=== PATIENT | female | born 1960 | race Caucasian/White ===

== ENCOUNTER → 2016-10-19 | Outpatient (CLI) | payer OTHER ==
[~2016-10-19] MED LIST: FAMO20TA11 PO; LANS15CA6 PO; LRT5 PO; SYN50 PO
--- NOTE | 2016-10-20 14:35 | MAMMOGRAPHY REPORT ---
BILATERAL DIGITAL SCREENING MAMMOGRAM TOMOSYNTHESIS WITH CAD: 10/19/2016 CLINICAL HISTORY: Routine screening. Patient has no complaints. TECHNIQUE: Breast tomosynthesis in addition to standard 2D mammography was performed. Current study was also evaluated with a Computer Aided Detection (CAD) system. COMPARISON: Comparison is made to exams dated: 08/28/2013 mammogram, 02/24/2011 mammogram - [facility], 07/09/2008, and 07/06/2005 mammogram - [facility]. BREAST COMPOSITION: There are scattered areas of fibroglandular density in both breasts. FINDINGS: There are benign-appearing calcifications scattered in the breasts. No new suspicious mas s, architectural distortion or cluster of microcalcifications is seen. IMPRESSION: ACR BI-RADS CATEGORY 1: NEGATIVE There is no mammographic evidence of malignancy. A 1 year screening mammogram is recommended. The p atient will receive written notification of the results. Approximately 10% of breast cancers are not detected with mammography. A negative mammographic repor t should not delay biopsy if a clinically suggestive mass is present. Fatemeh Stark M.D. ay/:10/20/2016 07:37:26 Pharmacy Retail Support Specialist: Debbie GRAY(Laine)([place]), [facility] letter sent: Normal 1/2 BI-RADS Code: ACR BI-RADS Category 1: Negative
== END | disposition home or self-care (01) ==
LOC: C.MAMM 11:10
PROVIDERS: ATTEND Internal Medicine
DX: Z12.31 Encounter for screening mammogram for malignant neoplasm of breast (principal)

== ENCOUNTER 2018-01-22 12:07 | Emergency (ER) | payer OTHER ==
[~2018-01-22] VITALS: Ht 167.6 cm; Wt 111.3 kg
--- NOTE | 2018-01-22 12:16 | EMERGENCY ROOM VISIT NOTE ---
ED Visit Note First contact with patient: 12:14 CHIEF COMPLAINT: Suture removal left lower leg laceration HPI: This patient returns to the ED today for removal of sutures that were placed 9 days ago into her left lower leg. There has been no swelling, redness , or drainage from the wound. The patient feels like the laceration is healing well. REVIEW OF SYSTEMS: 6 system review was performed and was negative unless stated otherwise in history of present illness. PMH: The patient is healthy; diabetic, asthma, cholecystectomy, kidney stones , hysterectomy, gastric bypass, tonsillectomy SOCIAL HISTORY: Patient lives with her PHYSICAL EXAM: Vital Signs: Were reviewed reviewed Nurse's notes. GENERAL: 49- year-old white female appears in no acute distress. MENTAL Status: Alert and oriented 3. LEFT LOWER LEG: There is a sutured wound on the anterior medial with no signs of infection. There is no erythema, swelling, or tenderness. EMERGENCY DEPARTMENT COURSE: The sutures were removed without any difficulty and there was no separation of the wound edges. DIAGNOSIS: Healing left lower leg laceration laceration and suture removal DISCHARGE INSTRUCTIONS AND TREATMENT: Wash any remaining crusts off of the wound today and resume your normal activities. Current/Historical Medications Scheduled Famotidine (Pepcid), 20 MG PO DAILY Hydrocodone/Acetaminophen 5MG/500MG (Vicodin 5MG/500MG), 1-2 TABS PO Q6HR PRN Lansoprazole (Prevacid), 15 MG PO DAILY Levothyroxine (Synthroid *), 0.05 MG PO DAILY Allergies Coded Allergies: Iodinated Contrast Media (Verified Allergy, Unknown, HIVES TO CT SCAN DYE , 04/01/10) Departure Information Referrals Christophe Valencia M.D. (PCP) Patient Instructions My [facility]
[2018-01-22 12:22] VITALS: BP 112/76; PULSE 68; TEMP 36.7; O2SAT 96; Ht 167.6 cm; Wt 111.3 kg
== END 2018-01-22 12:38 | disposition home or self-care (01) ==
LOC: C.EDB 12:07 → C.EDD 12:38
DX: S81.812D Laceration without foreign body, left lower leg, subsequent encounter (principal); X58.XXXD Exposure to other specified factors, subsequent encounter

== ENCOUNTER 2024-07-12 11:52 | Inpatient (IN) ==
--- NOTE | 2024-07-12 12:31 | Emergency Department Note ---
Impression & Plan Pyelonephritis of right kidney, History of ESBL E. coli infection, Iron deficiency anemia, ALBERTO (acute kidney injury) ED Provider Note NAME: JARRED MCKOY AGE: 64 SEX: F : 1960 ARRIVES VIA: Walk-In INFORMANT: Patient ED PROVIDER(S): Moose Tao MD CHIEF COMPLAINT: Weakness, low blood pressure, jaundice, referred. PLAN: Disposition: Admit MEDICAL DECISION MAKING: The patient is a pleasant 64-year-old woman with a past medical history of type 2 diabetes, GERD, hyperlipidemia, hypothyroidism who presents to the emergency department via walk-in, referred by her pcp office for evaluation of generalized weakness, body aches, feverishness, cough, congestion over the past week which she feels is similar incontinuity with similar illness that she had in April and through the holidays. She does report feeling some improvement but never completely felt back to her normal state of health. She reports that her provider noted her blood pressure was low today in the office and that she appeared "pale" and slightly "jaundiced". Patient denies any excessive acetaminophen intake to manage her symptoms. She denies abdominal pain. She denies nausea or vomiting but does feel she has had no appetite and poor oral intake. She denies diarrhea. She reports her stool is brown, nonbloody and nonblack. She has been attempting to hydrate. On evaluation, the patient is no acute distress, with temperature of 37.8, blood pressure 100/50s medicines otherwise stable. She appears clinically dry. She has mild pallor but no overt jaundice or icterus. Abdomen is nontender. EKG without overt acute ischemia. CXR negative for acute cardiopulmonary process per my personal preliminary review/interpretation. WBC within normal limits without neutrophilia or left shift. H/H 9.6/29.5 decreased from prior values in 2022 with normocytic MCV with iron studies suggestive of iron deficiency/chronic disease. Chemistry with out metabolic acidosis. BUN is 30 with creatinine 1.6 with BUN/creatinine consistent with patient's clinically dry appearance/ALBERTO. Magnesium 1.6 and electrolytes otherwise unremarkable. AST and ALT are mildly elevated 54 and 70, respectively. Total bilirubin is normal as is direct bilirubin. High- sensitivity troponin is not elevated. Lipase is normal. Procalcitonin is elevated at 4.9. TSH within normal limits. Lactic acid within normal limits. UA is consistent with infection with WBCs and bacteria. Respiratory BioFire was negative. CT of the abdomen pelvis was performed and is consistent with pyelonephritis with gas noted in the bladder and right collecting system. Review of prior cultures demonstrates history of ESBL E. coli UTI and so Invanz ordered empirically at this time. Blood cultures are pending. Given patient's complicated UTI, the patient agrees with referral to hospitalist service for admission. Case was discussed with FRANCO Sykes hospitalist, who will evaluate the patient for admission. Further management per admitting team. Triage Nursing notes reviewed and agree them. Prior/external medical records reviewed Vital Signs: reviewed Differential diagnosis: Infection, dehydration, metabolic abnormality, hypo/hyperglycemia, electrolyte disturbance, anemia, hypoxia, cardiac sources, intracerebral event, toxicologic, neurologic, as well as other pathologies. ER treatment provided: See below. Diagnostics interpreted by me: ECG: Normal sinus rhythm, 61 bpm, no ectopy, no overt ST elevation or depression, QTc 416, QRS 74 Cardiac Monitoring: An order for continuous cardiac monitoring was placed and demonstrated NSR, 61 bpm, no ectopy. Laboratory studies: See below Imaging studies: See below Consultation(s): Case was discussed with KATHY Sykes hospitalist, who will evaluate the patient for admission. HPI: The patient is a pleasant 64-year-old woman with a past medical history of type 2 diabetes, GERD, hyperlipidemia, hypothyroidism who presents to the emergency department via walk-in, referred by her pcp office for evaluation of generalized weakness, body aches, feverishness, cough, congestion over the past week which she feels is similar incontinuity with similar illness that she had in April and through the holidays. She does report feeling some improvement but never completely felt back to her normal state of health. She reports that her provider noted her blood pressure was low today in the office and that she appeared "pale" and slightly "jaundiced". Patient denies any excessive acetaminophen intake to manage her symptoms. She denies abdominal pain. She denies nausea or vomiting but does feel she has had no appetite and poor oral intake. She denies diarrhea. She reports her stool is brown, nonbloody and nonblack. She has been attempting to hydrate. ROS: See above HPI for pertinent positives & negatives. A total of 10 systems reviewed and were otherwise negative. VITALS:See Below PHYSICAL EXAMINATION: GENERAL: Awake, alert, fatigued-appearing, in no distress HENT: Normocephalic, atraumatic. TMs normal bilaterally. Oropharynx with dry mucous membranes and otherwise unremarkable. EYES: Normal conjunctiva. Sclera non-icteric. NECK: Supple. No nuchal rigidity. FROM. No JVD. RESPIRATORY: Clear to auscultation. CARDIAC: Regular rate, normal rhythm. Extremities warm and well perfused. Pulses equal. ABDOMEN: Soft, non-distended. No tenderness to palpation. No rebound or guarding. No masses. MUSCULOSKELETAL: Chest examination reveals no tenderness. The back is symmetrical on inspection without obvious abnormality. There is no CVA tenderness to palpation. No joint edema. LOWER EXTREMITIES: Calves are equal size bilaterally and non-tender. No edema. No discoloration. NEURO: Normal sensorium. No sensory or motor deficits noted. SKIN: No rash or jaundice noted. Moose Tao MD Past Med/Surg History Problem List (Updated 07/13/24 @ 00:42 by Moose Tao MD) ALBERTO (acute kidney injury) (Acute) Iron deficiency anemia (Acute) History of ESBL E. coli infection (Acute) Pyelonephritis of right kidney (Acute) Type 2 diabetes mellitus with albuminuria Hypertriglyceridemia Type 2 diabetes mellitus with obesity Skin tags, multiple acquired Dyslipidemia Hypothyroidism Thyromegaly History of gastric bypass with hernia repair GERD (gastroesophageal reflux disease) Asthma allergy induced--inhaler prn Depression (Acute) Medical History Vitamin D deficiency History of anesthesia reaction after wrist sx: difficulty waking and "oxygen level kept dropping, had to admit me and wear oxygen overnight" Osteoarthritis Kidney stones Diabetes mellitus, type 2 Surgical History H/O umbilical hernia repair History of cholecystectomy History of hysterectomy History of dilatation and curettage x2 History of open reduction and internal fixation (ORIF) procedure x2 left wrist--hardware in place History of cystoscopy x2 with stents placed History of colonoscopy History of esophagogastroduodenoscopy (EGD) History of tooth extraction History of tonsillectomy and adenoidectomy History of bilateral cataract extraction Family History Grandmother (Maternal) Diabetes Mother Diabetes Dementia Son Diabetes Uncle Colorectal cancer Aunt Breast cancer Other No family history of adverse response to anesthesia Denies family history of Ovarian cancer Prostate cancer Myocardial infarction Social History Smoking Status: Unknown if ever smoked Second Hand Exposure: No ( smoked); Do You Dip or Chew Tobacco: No; Hx Alcohol Use: No Hx Substance Use: No Preferred Language: Mongolian Communication Ability: Effective Visual Impairment: Limited Hearing Ability: Normal Trade Sales Assistant Required: No Beliefs That Will Affect Care: None marital status: Current Living Situation: Family Current Living Situation Comment: with son current occupational status: employed How many Children do You have: 2 Other Information That Helps Us Care for You: No Feels Safe at Home: Yes Safety Concerns: Feels Safe At This Time Childhood Exposure to Second-Hand Smoke: Yes Diet Comment: Watches lactose carefully caffeine: Yes (soda) Dental Care, Regularly: Yes Physical Activity Frequency: Does not Exercise Seatbelt Use: always Sunscreen Use: No Assistive Devices: Glasses Allergies Allergies Allergy/AdvReac Type Severity Reaction Status Date / Time Iodinated Contrast Media Allergy Unknown HIVES TO Verified 07/12/24 10:41 CT SCAN DYE shellfish derived Allergy Unknown Verified 07/12/24 10:41 Home Meds Home Medications Medication Instructions Recorded Confirmed multivitamin 1 tab PO QAM 09/26/18 07/12/24 mecobalamin (vitamin B12) 1,000 1,000 mcg PO DAILY 02/05/20 07/12/24 mcg chewable tablet cholecalciferol (vitamin D3) 25 3,000 unit PO QAM 09/28/21 07/12/24 mcg (1,000 unit) capsule (Vitamin D3) metformin 1,000 mg tablet 1,000 mg PO UD 07/12/24 07/12/24 Previous Rx's Medication Instructions Recorded albuterol sulfate 90 mcg/actuation 2 puff inhalation QID PRN 04/06/23 aerosol inhaler shortness of breath or wheezing #6.7 grams pantoprazole 40 mg tablet,delayed 40 mg PO DAILY #90 tabs 11/30/23 release fexofenadine 180 mg tablet 180 mg PO Q24H 30 days #30 tabs 01/21/24 (Allergy Relief (fexofenadine)) tirzepatide 5 mg/0.5 mL 5 mg (0.5 mL) subcut .q7days 28 05/22/24 subcutaneous pen injector days #2 mL (Mounjaro) atorvastatin 10 mg tablet 10 mg PO DAILY #30 tabs 07/02/24 levothyroxine 175 mcg tablet 175 mcg PO DAILY #30 tabs 07/02/24 olmesartan 5 mg tablet 5 mg PO DAILY 90 days #90 tabs 07/02/24 Results & Data (ED) Vital Signs Vital Signs - 24 hr 07/12/24 11:55 07/12/24 12:17 07/12/24 12:21 Pulse Rate 66 63 Pulse Rate [Apical] 69 Pulse Rhythm [Apical] Pulse Strength [Apical] Respiratory Rate 20 18 Respiratory Effort / Characteristics Non-Labored Spontaneous Non-Labored Spontaneous Respiratory Depth Normal Normal Respiratory Pattern Regular Blood Pressure 104/58 L Blood Pressure [Right Arm] 112/51 L Blood Pressure Mean 73 Blood Pressure Mean [Right Arm] 71 Blood Pressure Position [Right Arm] Sitting Pulse Oximetry 100 98 Oxygen Delivery Method Room Air Room Air Sepsis Recent Fever Within 48 Hours Yes Sepsis New/Unexplained Change in Mental Status No Sepsis Action Taken by Nursing No Action Required 07/12/24 13:00 07/12/24 13:30 07/12/24 14:00 Pulse Rate 60 65 Pulse Rate [Apical] 69 Pulse Rhythm [Apical] Pulse Strength [Apical] Respiratory Rate 24 21 18 Respiratory Effort / Characteristics Non-Labored Spontaneous Respiratory Depth Normal Respiratory Pattern Blood Pressure 106/62 108/62 Blood Pressure [Right Arm] 129/72 Blood Pressure Mean 68 80 Blood Pressure Mean [Right Arm] 91 Blood Pressure Position [Right Arm] Sitting Pulse Oximetry 98 96 99 Oxygen Delivery Method Room Air Sepsis Recent Fever Within 48 Hours Sepsis New/Unexplained Change in Mental Status Sepsis Action Taken by Nursing 07/12/24 14:00 07/12/24 15:21 07/12/24 15:30 Pulse Rate 65 67 Pulse Rate [Apical] 66 Pulse Rhythm [Apical] Regular Pulse Strength [Apical] Normal Respiratory Rate 20 16 15 Respiratory Effort / Characteristics Non-Labored Respiratory Depth Normal Respiratory Pattern Blood Pressure 129/72 114/69 Blood Pressure [Right Arm] 115/68 Blood Pressure Mean 97 99 Blood Pressure Mean [Right Arm] 83 Blood Pressure Position [Right Arm] Pulse Oximetry 96 99 93 Oxygen Delivery Method Room Air Sepsis Recent Fever Within 48 Hours Sepsis New/Unexplained Change in Mental Status Sepsis Action Taken by Nursing 07/12/24 16:17 07/12/24 16:30 07/12/24 17:00 Pulse Rate 62 69 75 Pulse Rate [Apical] Pulse Rhythm [Apical] Pulse Strength [Apical] Respiratory Rate 19 24 Respiratory Effort / Characteristics Respiratory Depth Respiratory Pattern Blood Pressure 112/68 99/62 L Blood Pressure [Right Arm] Blood Pressure Mean 84 73 Blood Pressure Mean [Right Arm] Blood Pressure Position [Right Arm] Pulse Oximetry 99 100 Oxygen Delivery Method Sepsis Recent Fever Within 48 Hours Sepsis New/Unexplained Change in Mental Status Sepsis Action Taken by Nursing Laboratory Data Attestation: I reviewed the patient's lab results. 07/12/24 12:15 07/12/24 12:15 Lab Results 07/12/24 07/12/24 07/12/24 Range/Units 12:15 14:20 15:25 WBC 5.57 (4.8-10.8) K/ul RBC 3.28 L (4.20-5.40) M/uL Hgb 9.6 L (12.0-16.0) g/dl Hct 29.5 L (37.0-47.0) % MCV 89.9 (80.0-100.0) fL MCH 29.3 (25.0-34.0) pg MCHC 32.5 (32.0-36.0) g/dL RDW Std Deviation 52.4 H (36.4-46.3) fL RDW Coeff of Ani 15.9 H (11.5-14.5) % Plt Count 274 (130-400) K/uL MPV 10.5 (9.4-12.4) fL Immature Gran % (Auto) 0.4 % Neut % (Auto) 69.5 % Lymph % (Auto) 17.2 % [place] % (Auto) 9.7 % Eos % (Auto) 2.3 % Baso % (Auto) 0.9 % Reticulocyte % (Auto) 1.04 (0.50-2.00) % Neut # (Auto) 3.87 (1.40-6.50) K/uL Lymph # (Auto) 0.96 L (1.20-3.40) K/uL [place] # (Auto) 0.54 (0.11-0.59) K/uL Eos # (Auto) 0.13 (0.00-0.50) K/uL Baso # (Auto) 0.05 (0.00-0.20) K/uL Reticulocyte # 0.030 (0.020-0.100) 10^6/uL Immature Gran # (Auto) 0.02 (0.01-0.20) K/uL PT 10.6 (9.0-12.0) Seconds INR 1.0 (0.9-1.1) Sodium 139 (136-145) mmol/L Potassium 3.5 (3.5-5.1) mmol/L Chloride 107 (98-107) mmol/L Carbon Dioxide 22 (21-32) mmol/L Anion Gap 10 (3-11) BUN 30 H (6-23) mg/dl Creatinine 1.26 H (0.6-1.2) mg/dl Est Cr Clr Drug Dosing 51.1 ml/min eGFR 47.38 BUN/Creatinine Ratio 23.8 H (10-20) Glucose 126 H (70-99(Fasting)) mg/dl Lactate 1.4 (0.4-2.0) mmol/L Calcium 9.4 (8.6-10.3) mg/dl Phosphorus 3.1 (2.5-4.9) mg/dl Magnesium 1.6 L (1.7-2.4) mg/dl Iron 11 L (35-150) mcg/dl Unsaturated IBC 200 (155-355) mcg/dl Transferrin 173 L (200-360) mg/dl Ferritin 362.7 (8-388) ng/ml Total Bilirubin 0.6 (0.2-1.0) mg/dl Direct Bilirubin 0.2 (0-0.2) mg/dl AST 54 H (13-39) U/L ALT 78 H (7-52) U/L Alkaline Phosphatase 82 (34-104) U/L Ammonia 16.0 L (18-72) umol/L Troponin I High Sens 5.5 (0-14) pg/ml Total Protein 6.9 (6.0-8.3) gm/dl Albumin 3.5 (3.4-5.0) gm/dl Globulin 3.4 (2.5-4.0) gm/dl Albumin/Globulin Ratio 1.0 (0.9-2) Lipase 36 (11-82) U/L Vitamin B12 1413 H (180-914) pg/ml Folate > 22.30 (>5.38) ng/ml Procalcitonin 4.95 H (0-0.5) ng/ml TSH 0.539 (0.300-4.500) uIu/ml Urine Color Yellow Urine Appearance Cloudy A (Clear) Urine pH 5.5 (4.5-7.5) Ur Specific [place] 1.020 (1.000-1.030) Urine Protein 1+ H (Negative) Urine Glucose (UA) Negative (Negative) Urine Ketones Negative (Negative) Urine Blood 2+ H (Negative) Urine Nitrite Negative (Negative) Urine Bilirubin Negative (Negative) Urine Urobilinogen Negative (Negative) Ur Leukocyte Esterase 2+ H (Negative) Urine WBC (Auto) >50 H (0-5) /hpf Urine RBC (Auto) 11-20 H (0-2) /hpf U Hyaline Cast (Auto) 11-20 H (0-2) /lpf U Epithel Cells (Auto) 3-5 H (0-2) /hpf Urine Bacteria (Auto) 4+ H (None Seen) Hyaline Casts Present A (None Presnt) /lpf Acetaminophen 28 (10-30) ug/ml Adenovirus (PCR) Not Detected (NotDetected) Anaplasma Smear See Comment Babesia Smear See Comment B. pertussis DNA (PCR) Not Detected (NotDetected) B.parapertussis DNA PCR Not Detected (NotDetected) Lyme Disease Screen Negative (Negative) C. pneumoniae DNA (PCR) Not Detected (NotDetected) Coronavirus OC43 (PCR) Not Detected (NotDetected) Coronavirus HKU1 (PCR) Not Detected (NotDetected) Coronavirus 229E (PCR) Not Detected (NotDetected) SARS-CoV-2 (PCR) Not Detected (NotDetected) Coronavirus NL63 (PCR) Not Detected (NotDetected) Human Metapneumovir PCR Not Detected (NotDetected) Influenza Type A (PCR) Not Detected (NotDetected) Influenza Type B (PCR) Not Detected (NotDetected) M. pneumoniae (PCR) Not Detected (NotDetected) Parainfluenza 1 (PCR) Not Detected (NotDetected) Parainfluenza 2 (PCR) Not Detected (NotDetected) Parainfluenza 3 (PCR) Not Detected (NotDetected) Parainfluenza 4 (PCR) Not Detected (NotDetected) RSV (PCR) Not Detected (NotDetected) Entero/Rhino (PCR) Not Detected (NotDetected) Administered Medications Fexofenadine HCl (Fexofenadine Hcl 180 Mg Tab) 180 mg PO Q24H MINDY Stop: 08/11/24 20:59 Last Admin: 07/12/24 20:35 Dose: 180 mg Documented By: DAMildred Insulin Aspart (Insulin Aspart Per Unit Charge) 0 units SC ACHS MINDY Stop: 08/11/24 20:59 Last Admin: 07/12/24 20:03 Dose: Not Given Documented By: DAH Discontinued Medications Sodium Chloride (Nss) 1,000 mls @ 999 mls/hr IV .Q1H1M ONE Stop: 07/12/24 13:26 Last Infusion: 07/12/24 14:21 Dose: Infused Documented By: Admin: 07/12/24 12:54 Dose: 999 mls/hr Documented By: CC Ertapenem (Invanz 1000mg) 1,000 mg in 10 mls @ 2 mls/min IV NOW STA Stop: 07/12/24 16:16 Last Admin: 07/12/24 16:26 Dose: 2 mls/min Documented By: HB Sodium Chloride (Nss) 1,000 mls @ 999 mls/hr IV .Q1H1M ONE Stop: 07/12/24 17:12 Last Infusion: 07/12/24 17:21 Dose: Infused Documented By: Admin: 07/12/24 16:23 Dose: 999 mls/hr Documented By: HB Sodium Chloride (Nss) 1,000 mls @ 999 mls/hr IV .Q1H1M ONE Stop: 07/12/24 18:31 Last Infusion: 07/12/24 19:02 Dose: Infused Documented By: Admin: 07/12/24 17:43 Dose: 999 mls/hr Documented By: ANT Ibuprofen (Ibuprofen 600 Mg Tab) 600 mg PO NOW ONE Stop: 07/12/24 20:49 Last Admin: 07/12/24 21:21 Dose: 600 mg Documented By: [facility] Imaging Data Radiologist's Impression: Chest X-Ray 07/12/24 12:12 XR chest 1V portable CLINICAL HISTORY: Chest pain, nonspecific TECHNIQUE: Single frontal radiograph of the chest was obtained. Comparison: Comparison is made to chest radiograph 04/26/2023 FINDINGS: No lines and tubes are seen. The cardiomediastinal silhouette is normal. The lungs are clear. No evidence of pleural effusion or pneumothorax. IMPRESSION: No acute chest disease. ACT 112: Negative or not required by law. Electronically signed by: Sunny Duke M.D. 07/12/2024 12:37 PM Abdomen/Pelvis CT 07/12/24 13:57 CT abd pelvis wo con CLINICAL HISTORY: fever, transaminitis, anemia TECHNIQUE: Helical axial images of the abdomen and pelvis were obtained. Automated dose lowering techniques and/or adjustment according to patient size were utilized for this exam. This exam was performed without intravenous contrast. CT DOSE: 1447.29 mGy.cm COMPARISON: Comparison is made to CT abdomen pelvis 03/26/2010 FINDINGS: Lower chest: Trace right pleural effusion is seen. Liver: Unremarkable. No focal lesions are seen. Gallbladder and biliary tree: Patient is status post cholecystectomy. No intra- or extrahepatic biliary ductal dilation. Pancreas: Unremarkable, no focal lesions. Spleen: Splenule is incidentally noted. Adrenals: Unremarkable. Kidneys and ureters: Perinephric stranding is noted bilaterally. Parapelvic cysts are seen on the left. There is gas in the right collecting system and a tiny nonobstructive stone. Bladder: An independent gas may represent prior instrumentation. Reproductive organs: Patient is status post hysterectomy. Bowel: Diverticulosis is seen without diverticulitis. The appendix is normal. There is a small hiatal hernia status post gastric bypass. Lymph nodes Retroperitoneal: Subcentimeter lymph nodes are noted. Pelvic: Unremarkable. Mesenteric: Unremarkable. Peritoneum: Normal. Vessels: Unremarkable. Abdominal wall: A nonspecific calcification in focus of soft tissue thickening in the back is unchanged. Bones: Degenerative changes in the visualized spine. IMPRESSION: 1. No acute abnormalities are seen to explain fever and chills. 2. Gas in the bladder and right collecting system, correlate with prior instrumentation. 3. Diverticulosis without diverticulitis. ACT 112: Negative or not required by law. Electronically signed by: Sunny Duke M.D. 07/12/2024 2:23 PM Discharge Plan Visit Data Chief Complaint: Referred by Doctor Stated Complaint: LOW BP, R/O JAUNDICE. SENT BY ED Provider: Moose Tao Discharge Problem: Pyelonephritis of right kidney, History of ESBL E. coli infection, Iron deficiency anemia, ALBERTO (acute kidney injury) Patient Disposition: Admitted As Inpatient Discharge Instructions Interventions: ED Discharge Assessment Last Done: 07/12/24 20:00 Discharge Problem: Iron deficiency anemia Qualifiers: Iron deficiency anemia type: unspecified iron deficiency Qualified Code(s): D 50.9 - Iron deficiency anemia, unspecified
[2024-07-12 12:36] LABS: Basophils # (auto) 0.05 K/uL (0.00-0.20); Basophils % (auto) 0.9 %; Eosinophils # (auto) 0.13 K/uL (0.00-0.50); Eosinophils % (auto) 2.3 %; Hematocrit (blood only) 29.5 % (37.0-47.0); Hemoglobin 9.6 g/dl (12.0-16.0); Immature Granulocytes # (auto) 0.02 K/uL (0.01-0.20); Immature Granulocytes % (auto) 0.4 %; Lymphocytes # (auto) 0.96 K/uL (1.20-3.40); Lymphocytes % (auto) 17.2 %; Mean Corpuscular Hemoglobin 29.3 pg (25.0-34.0); Mean Corpuscular Hgb Conc 32.5 g/dL (32.0-36.0); Mean Corpuscular Volume 89.9 fL (80.0-100.0); Mean Platelet Volume 10.5 fL (9.4-12.4); Monocytes # (auto) 0.54 K/uL (0.11-0.59); Monocytes % (auto) 9.7 %; Neutrophils # (auto) 3.87 K/uL (1.40-6.50); Neutrophils % (auto) 69.5 %; Platelet Count 274 K/uL (130-400); RDW Coefficient of Variation 15.9 % (11.5-14.5); RDW Standard Deviation 52.4 fL (36.4-46.3); Red Blood Count 3.28 M/uL (4.20-5.40); White Blood Count 5.57 K/ul (4.8-10.8)
--- NOTE | 2024-07-12 12:39 | XRay Report ---
XR chest 1V portable CLINICAL HISTORY: Chest pain, nonspecific TECHNIQUE: Single frontal radiograph of the chest was obtained. Comparison: Comparison is made to chest radiograph 04/26/2023 FINDINGS: No lines and tubes are seen. The cardiomediastinal silhouette is normal. The lungs are clear. No evid ence of pleural effusion or pneumothorax. IMPRESSION: No acute chest disease. ACT 112: Negative or not required by law. Electronically signed by: Sunny Duke M.D. 07/12/2024 12:37 PM
[2024-07-12 12:54] LABS: Albumin Level 3.5 gm/dl (3.4-5.0); BUN Creatinine Ratio 23.8 (10-20); Bilirubin Direct 0.2 mg/dl (0-0.2); Bilirubin,Total 0.6 mg/dl (0.2-1.0); Calcium 9.4 mg/dl (8.6-10.3); Creatinine Clr Calc Pharmacy 51.1 ml/min; Globulin 3.4 gm/dl (2.5-4.0); Potassium 3.5 mmol/L (3.5-5.1); Total Protein 6.9 gm/dl (6.0-8.3)
[2024-07-12] MEDS: SODIUM CHLORIDE 0.9% 1,000 ML IV ONE ×3 (12:54→17:43)
[2024-07-12 12:59] LABS: Troponin I High Sensitivity 5.5 pg/ml (0-14)
[2024-07-12 13:05] LABS: Reticulocyte % 1.04 % (0.50-2.00); Reticulocytes # 0.03 10^6/uL (0.020-0.100)
[2024-07-12 13:06] LABS: Magnesium 1.6 mg/dl (1.7-2.4); Phosphorus 3.1 mg/dl (2.5-4.9); Prothrombin Time 10.6 Seconds (9.0-12.0)
[2024-07-12 13:20] LABS: Thyroid Stimulating Hormone 0.539 uIu/ml (0.300-4.500)
[2024-07-12 13:26] LABS: Ferritin 362.7 ng/ml (8-388)
[2024-07-12 14:13] LABS: Adenovirus PCR Not Detected (NotDetected); Bordetella parapertussis PCR Not Detected (NotDetected); Bordetella pertussis PCR Not Detected (NotDetected); Chlamydia pneumoniae PCR Not Detected (NotDetected); Coronavirus 229E PCR Not Detected (NotDetected); Coronavirus CoV-2 (COVID19)PCR Not Detected (NotDetected); Coronavirus HKU1 PCR Not Detected (NotDetected); Coronavirus NL63 PCR Not Detected (NotDetected); Coronavirus OC43PCR Not Detected (NotDetected); Human Metapneumovirus PCR Not Detected (NotDetected); Influenza A PCR Not Detected (NotDetected); Influenza B PCR Not Detected (NotDetected); Mycoplasma pneumoniae PCR Not Detected (NotDetected); Parainfluenza Virus 1 PCR Not Detected (NotDetected); Parainfluenza Virus 2 PCR Not Detected (NotDetected); Parainfluenza Virus 3 PCR Not Detected (NotDetected); Parainfluenza Virus 4 PCR Not Detected (NotDetected); Respiratory Syncytial VirusPCR Not Detected (NotDetected); Rhinovirus/Enterovirus PCR Not Detected (NotDetected)
[2024-07-12 14:15] LABS: Folate (Folic Acid),Ser orPlas > 22.30 ng/ml (>5.38); Vitamin B12 1413 pg/ml (180-914)
--- NOTE | 2024-07-12 14:25 | CT Scan Report ---
CT abd pelvis wo con CLINICAL HISTORY: fever, transaminitis, anemia TECHNIQUE: Helical axial images of the abdomen and pelvis were obtained. Automated dose lowering tech niques and/or adjustment according to patient size were utilized for this exam. This exam was perfor med without intravenous contrast. CT DOSE: 1447.29 mGy.cm COMPARISON: Comparison is made to CT abdomen pelvis 03/26/2010 FINDINGS: Lower chest: Trace right pleural effusion is seen. Liver: Unremarkable. No focal lesions are seen. Gallbladder and biliary tree: Patient is status post cholecystectomy. No intra- or extrahepatic bilia ry ductal dilation. Pancreas: Unremarkable, no focal lesions. Spleen: Splenule is incidentally noted. Adrenals: Unremarkable. Kidneys and ureters: Perinephric stranding is noted bilaterally. Parapelvic cysts are seen on the lef t. There is gas in the right collecting system and a tiny nonobstructive stone. Bladder: An independent gas may represent prior instrumentation. Reproductive organs: Patient is status post hysterectomy. Bowel: Diverticulosis is seen without diverticulitis. The appendix is normal. There is a small hiatal hernia status post gastric bypass. Lymph nodes Retroperitoneal: Subcentimeter lymph nodes are noted. Pelvic: Unremarkable. Mesenteric: Unremarkable. Peritoneum: Normal. Vessels: Unremarkable. Abdominal wall: A nonspecific calcification in focus of soft tissue thickening in the back is unchang ed. Bones: Degenerative changes in the visualized spine. IMPRESSION: 1. No acute abnormalities are seen to explain fever and chills. 2. Gas in the bladder and right collecting system, correlate with prior instrumentation. 3. Diverticulosis without diverticulitis. ACT 112: Negative or not required by law. Electronically signed by: Sunny Duke M.D. 07/12/2024 2:23 PM
[2024-07-12 15:53] LABS: Appearance Urine Cloudy (Clear); Bacteria Urine Automated 4+ (None Seen); Bilirubin Urine Negative (Negative); Blood Urine 2+ (Negative); Color Urine Yellow; Glucose Urine UA Negative (Negative); Hyaline Casts Urine Present /lpf (None Presnt); Ketones Urine Negative (Negative); Leukocyte Esterase Urine 2+ (Negative); Nitrite Urine Negative (Negative); Protein Urine 1+ (Negative); Urobilinogen Urine Negative (Negative); WBC Urine Automated >50 /hpf (0-5); pH Urine 5.5 (4.5-7.5)
[2024-07-12] MEDS: ERTAPENEM 1000MG 1,000 MG/10 ML SYR IV STA (16:26)
--- NOTE | 2024-07-12 17:31 | History & Physical Report ---
Date of Service July 12, 2024 Assessment & Plan (1) Pyelonephritis of right kidney: Plan: Yudy is a 64-year-old female who presents with hypotension, pallor, fatigue, myalgias. She is found to have a complicated UTI with emphysematous cystitis and concern for pyelo-, and history of ESBL E. coli infection treated with ertapenem until sensitivities are available. Complicated UTI, history of ESBL E. coli UA infected appearing She is not tachycardic or clinical leukocytosis however she is hypotensive on hospitalist assessment. Has received 2 L of crystalloid with no history of heart failure. AB W recommendations [id number]. Additional liter ordered Blood cultures pending No history of steroid use/AI - Hx ESBL e coli -No leukocytosis, procalcitonin is elevated. CT shows evidence of thematous cystitis and? Pyelo- Patient was placed on ertapenem, this is continued Follow urine culture, blood culture Lactate is normal Did not meet sepsis criteria in the ER Anemia Last hemoglobin baseline approximately 12. Denies acute bleeding. Hemoglobin 9.6 on admission Last colonoscopy was approximately 5 years ago, is next due in 2028. She reports this was normal and has no history of cancer or polyps. Denies GI bleeding, melena Iron studies are with ferritin of 362, normal although this may be artificially elevated as a phase reactant in the setting of acute complicated UTI MCV is not microcytic B12 is normal Folate is normal -Trend daily. If no improvement would consider repeat ferritin once illness complete and if alternative explanation for her anemia consider further work with hematology and peripheral smear at that time. No indication for transfusion at time of admission consultation Transaminitis History of prior cholecystectomy No evidence of residual gallbladder/stone/obstruction on CT DDx includes mild shock liver in the setting of preceding hypotension Trend daily If persistent then can follow-up with acute hepatitis panel at that time Tick panel pending Hypertension Olmesartan temporarily held for hypotension preceding admission Type II DM - Takes metformin 1g BID PRINCIPAL ARCHITECT. She is on tirzepatide PRINCIPAL ARCHITECT weekly, last took 07/11. will hold basal insulin Continue SSI Goal BSG [id number] Glucose checks AC/at bedtime Chronic stable issues GERD: Continue PPI Hypothyroidism: Continue Synthroid Hyperlipidemia: Continue statin DVT prophylaxis: Lovenox Disposition: M/T CODE STATUS: Full code Diet: Type II DM (2) Type 2 diabetes mellitus with albuminuria: (3) Type 2 diabetes mellitus with obesity: History of Present Illness Primary Care Provider: Johana Bean MD Yudy is a 64-year-old female who presents with hypotension, pallor, fatigue, myalgias. She is found to have a UTI and has a history of ESBL E. coli infection. Fevers, chills of ~5 days. Foul smell to urine odor. Has a dry cough. Nonproductive. No shortness of breath. No hypoxia. No chest pain or chest pressure No abdominal pain. No flank pain Had some loose BMs Tuesday/Tuesday, none today. Brown. No bloody or black bowel movements. Denies any history of bleeding. Last colonoscopy due in 2028, last was normal and recommended for 10 year followup. Taking tylenol and alternatives with ibuprofen. Takes 4 tablets of 650mg tylenol total over 24 hours. Alternates with with ibuprofen 6x 200mg tablets total per 24 hours. Medical History: Reviewed Medications: Reviewed Surgical History: Reviewed Family history: Reviewed Allergies: Reviewed Social History: Reviewed Code Status: Full COde Allergies Allergy/AdvReac Type Severity Reaction Status Date / Time Iodinated Contrast Media Allergy Unknown HIVES TO Verified 07/12/24 10:41 CT SCAN DYE shellfish derived Allergy Unknown Verified 07/12/24 10:41 Home Medications Medication Instructions Recorded Confirmed Type multivitamin 1 tab PO QAM 09/26/18 07/12/24 History mecobalamin (vitamin B12) 1,000 1,000 mcg PO DAILY 02/05/20 07/12/24 History mcg chewable tablet cholecalciferol (vitamin D3) 25 3,000 unit PO QAM 09/28/21 07/12/24 History mcg (1,000 unit) capsule (Vitamin D3) albuterol sulfate 90 mcg/actuation 2 puff inhalation QID PRN 04/06/23 07/12/24 Rx aerosol inhaler shortness of breath or wheezing #6.7 grams pantoprazole 40 mg tablet,delayed 40 mg PO DAILY #90 tabs 11/30/23 07/12/24 Rx release fexofenadine 180 mg tablet 180 mg PO Q24H 30 days #30 tabs 01/21/24 07/12/24 Rx (Allergy Relief (fexofenadine)) tirzepatide 5 mg/0.5 mL 5 mg (0.5 mL) subcut .q7days 28 05/22/24 07/12/24 Rx subcutaneous pen injector days #2 mL (Arti) atorvastatin 10 mg tablet 10 mg PO DAILY #30 tabs 07/02/24 07/12/24 Rx levothyroxine 175 mcg tablet 175 mcg PO DAILY #30 tabs 07/02/24 07/12/24 Rx olmesartan 5 mg tablet 5 mg PO DAILY 90 days #90 tabs 07/02/24 07/12/24 Rx metformin 1,000 mg tablet 1,000 mg PO UD 07/12/24 07/12/24 History Past Med/Surg History Problem List (Updated 07/12/24 @ 16:19 by Moose Tao MD) Iron deficiency anemia (Acute) History of ESBL E. coli infection (Acute) Pyelonephritis of right kidney (Acute) Type 2 diabetes mellitus with albuminuria Hypertriglyceridemia Type 2 diabetes mellitus with obesity Skin tags, multiple acquired Dyslipidemia Hypothyroidism Thyromegaly History of gastric bypass with hernia repair GERD (gastroesophageal reflux disease) Asthma allergy induced--inhaler prn Depression (Acute) Medical History Vitamin D deficiency History of anesthesia reaction after wrist sx: difficulty waking and "oxygen level kept dropping, had to admit me and wear oxygen overnight" Osteoarthritis Kidney stones Diabetes mellitus, type 2 Surgical History H/O umbilical hernia repair History of cholecystectomy History of hysterectomy History of dilatation and curettage x2 History of open reduction and internal fixation (ORIF) procedure x2 left wrist--hardware in place History of cystoscopy x2 with stents placed History of colonoscopy History of esophagogastroduodenoscopy (EGD) History of tooth extraction History of tonsillectomy and adenoidectomy History of bilateral cataract extraction Family History Grandmother (Maternal) Diabetes Mother Diabetes Dementia Son Diabetes Uncle Colorectal cancer Aunt Breast cancer Other No family history of adverse response to anesthesia Denies family history of Ovarian cancer Prostate cancer Myocardial infarction Social History Smoking Status: Never smoker Second Hand Exposure: No ( smoked); Do You Dip or Chew Tobacco: No; Hx Alcohol Use: No Hx Substance Use: No Preferred Language: Yemeni Communication Ability: Effective Visual Impairment: Limited Hearing Ability: Normal Flatcar Whacker Required: No Beliefs That Will Affect Care: None marital status: Current Living Situation: Spouse and Family Current Living Situation Comment: Lives with son, 37 current occupational status: employed How many Children do You have: 2 Feels Safe at Home: Yes Childhood Exposure to Second-Hand Smoke: Yes Diet Comment: Watches lactose carefully caffeine: Yes (soda) Dental Care, Regularly: Yes Physical Activity Frequency: Does not Exercise Seatbelt Use: always Sunscreen Use: No Assistive Devices: Contacts and Glasses Physical Exam Physical Exam: General: A&Ox3. NAD. Cooperative. HEENT: Atraumatic, normocephalic. Vision and hearing grossly intact Pulm: CTAB A&P. -wheezes, -rales, -rhonchi. Symmetrical chest rise. No increased work of breathing. No respiratory distress. Cardiac: RRR, -mrg. Radial pulses intact and symmetrical. Abdominal: Nontender, nondistended, soft. BS present. Ext" Warm, dry. Moves extremities equally Results & Data Results & Data Vital Signs (Past 12 Hours) Vital Signs Pulse Pulse Resp BP BP Pulse Ox O2 Del Method 07/12/24 17:00 75 24 99/62 L 100 07/12/24 16:30 69 19 112/68 99 07/12/24 16:17 62 07/12/24 15:30 67 15 114/69 93 07/12/24 15:21 66 16 115/68 99 Room Air 07/12/24 14:00 65 20 129/72 96 07/12/24 14:00 69 18 129/72 99 Room Air 07/12/24 13:30 65 21 108/62 96 07/12/24 13:00 60 24 106/62 98 07/12/24 12:21 69 18 112/51 L 98 Room Air 07/12/24 12:17 63 07/12/24 11:55 66 20 104/58 L 100 Room Air PG Care Time/CCT Total # of Minutes Spent Total Time Spent with Patient: Total time spent is greater than 50% in coordination of care (as documented) at patient's floor/unit and/or counseling patient: Coding Level of Care Code 32545 INT INP/OBS CARE 3/75MIN Diagnoses Pyelonephritis of right kidney N12 Type 2 diabetes mellitus with albuminuria E11.29; R80.9 Type 2 diabetes mellitus with obesity E11.69; E66.9
[2024-07-12] MEDS ORDERED: DEXTROSE 50% 50 ML SYRINGE IV PRN (17:42)
[2024-07-12] MEDS ORDERED: CARBOHYDRATES FOR HYPOGLYCEMIA PO PRN (17:42)
[2024-07-12] MEDS ORDERED: GLUCAGON FOR INJ 1 MG VIAL SQ PRN (17:42)
[2024-07-12] MEDS ORDERED: GLUCOSE 10 TAB/TUBE PO PRN (17:42)
[2024-07-12] MEDS ORDERED: GLUCOSE 40% GEL 15 GM TUBE PO PRN (17:42)
[2024-07-12] MEDS ORDERED: ALBUTEROL HFA 8 GM INHALER INH PRN (20:02)
[2024-07-12] MEDS: INSULIN ASPART PER UNIT CHARGE SC SCH (20:03)
[2024-07-12] MEDS: FEXOFENADINE HCL 180 MG TAB PO SCH (20:35)
[2024-07-12] MEDS: IBUPROFEN 600 MG TAB PO ONE (21:21)
[2024-07-13] MEDS: LEVOTHYROXINE SODIUM 175 MCG TABLET PO SCH (06:15)
[2024-07-13] MEDS: BENZONATATE 100 MG CAPSULE PO PRN (06:16)
--- NOTE | 2024-07-13 07:27 | Hospitalist Progress Note ---
Date of Service July 13, 2024 Assessment & Plan (1) ALBERTO (acute kidney injury): Plan: Pt is a 64 yo female with PMH of DM and hypothyroidism presenting to the hospital d/t cough, fevers, and chills. She was evaluated by her PCP who recommended she come to the ER d/t hypotension and "jaundice." General illness/hypotension - unclear etiology; pyelo vs. viral illness vs. ? - overall picture now improving: no longer hypotensive, transaminitis resolved, ALBERTO resolved - pt with hx significant for ESBL urine infection and perinephric stranding on CT; currently treating with ertapenem for possible pyelo (although without overt urinary symptoms) - will continue ertapenem into tomorrow and determine further need for ABX based on response Anemia - last Hgb in 2022 WNL; on admission 9.6 with downtrend to 8.4 - unclear etiology; no obvious signs of bleeding, ?possible viral suppression - last colonoscopy in 2019 WNL; iron studies show low iron with normal ferritin (which could be acute phase reactant)- B12 and folate WNL - FOBT ordered to evaluate for GI bleeding - consider repeat ferritin once illness resolves to determine iron deficiency state; pt may benefit from outpatient colonoscopy for further work up to ensure no GI malignancy ALBERTO- resolved - no hx of CKD; suspect ALBERTO secondary to dehydration - Cr on admission 1.26; after IVF now back WNL Transaminitis- resolved - initially elevated at AST 54/ALT 78 on admission - repeat downtrended to normal - suspect secondary to hypotension Type 2 DM- cover with SSI while hospitalized Hypothyroidism- continue synthroid HLD- continue statin Diet: carb consistent VTE ppx: lovenox Dispo: PCU/tele- d/t stability, will downgrade to med/surg (2) History of ESBL E. coli infection: (3) Viral sinusitis: (4) Transaminitis: (5) Anemia: Admission and Anticipated Discharge Date Admission Date: July 12, 2024 Supervising Physician Co-Signing Physician Notes I personally examined the patient and verified all paz points of history and exam, discussed case, and agree with decision making with Dr Lemus Feeling better. Just tired. Vitals noted, in general she is awake and alert pleasant no distress. HEENT normocephalic atraumatic mucous membranes moist. Breathing unlabored no accessory muscle use good effort. Skin without rashes pallor or icterus. Neuro without focal deficits. Illnessnot entirely clear etiology. Working diagnosis at admission was pyelonephritis/complicated UTIat the same time she really does not seem to complain of any urinary symptoms, and her dark/foul-smelling urine could easily been attributed to being dehydrated. I wonder about a viral illnessthat could account for her sinus symptoms, overall feeling lousy, and then dehydration could account for the low blood pressure and concentrated urine. At the same time hard to rule out urinary given her overall presentationcontinue antibiotics pending cultures. Anemiauncertain etiology but no clear bleeding. Iron low, ferritin probably phase reactantso most likely iron deficiency. Is not due for a colonoscopy for another 5 years, but given iron deficiency anemia probably safer to get it done sometime in the next few months. Follow into tomorrow, start iron replacement (holding IV for now though due to infection) DVT prophylaxiscurrently SCDs given anemia. Otherwise as above Subjective Pt feeling better this morning compared to yesterday but not back to her normal. She notes she has not had anymore diarrhea. She still has some sinus congestion and cough. She feels fatigued, weak, and has a headache. Review of Systems Review of Systems: As per HPI Physical Exam Physical Exam: Constitutional: well appearing, no acute distress HEENT: normocephalic, no conjunctival injection CV: RRR, no murmur, no LE edema Respiratory: CTA bilaterally. No rhonchi, wheezes, or crackles. No increased work of breathing GI: soft, nondistended, nontender, + bowel sounds Neuro: alert, oriented, no FND noted Psych: mood and affect congruent Results & Data Results & Data Vital Signs (Past 12 Hours) Vital Signs Temp Pulse Pulse Resp BP Pulse Ox Pulse Ox 07/13/24 07:00 65 07/13/24 02:30 36.7 C 78 16 105/77 95 07/12/24 22:24 37.2 C 82 18 134/76 94 07/12/24 20:03 37.8 C H 83 18 136/75 99 07/12/24 20:02 99 O2 Del Method O2 Del Method 07/13/24 07:00 07/13/24 02:30 Room Air 07/12/24 22:24 Room Air 07/12/24 20:03 Room Air 07/12/24 20:02 Room Air Resident Activity Tracking Resident Involvement: Resident Care Provided Care Provided: Adult Hospital Medicine
[2024-07-13 07:40] LABS: Basophils # (auto) 0.05 K/uL (0.00-0.20); Basophils % (auto) 0.8 %; Eosinophils # (auto) 0.21 K/uL (0.00-0.50); Eosinophils % (auto) 3.2 %; Hemoglobin 8.4 g/dl (12.0-16.0); Immature Granulocytes # (auto) 0.02 K/uL (0.01-0.20); Immature Granulocytes % (auto) 0.3 %; Lymphocytes # (auto) 1.06 K/uL (1.20-3.40); Lymphocytes % (auto) 15.9 %; Mean Corpuscular Hemoglobin 28.9 pg (25.0-34.0); Mean Corpuscular Hgb Conc 32.3 g/dL (32.0-36.0); Mean Corpuscular Volume 89.3 fL (80.0-100.0); Mean Platelet Volume 10.6 fL (9.4-12.4); Monocytes # (auto) 0.72 K/uL (0.11-0.59); Monocytes % (auto) 10.8 %; Platelet Count 278 K/uL (130-400); RDW Coefficient of Variation 15.8 % (11.5-14.5); RDW Standard Deviation 52.2 fL (36.4-46.3); Red Blood Count 2.91 M/uL (4.20-5.40); White Blood Count 6.66 K/ul (4.8-10.8)
[2024-07-13 08:05] LABS: BUN Creatinine Ratio 22.2 (10-20); Calcium 8.8 mg/dl (8.6-10.3); Creatinine Clr Calc Pharmacy 71.5 ml/min; Potassium 3.5 mmol/L (3.5-5.1)
[2024-07-13] MEDS: CHOLECALCIFEROL 25 MCG (1000 UNITS) TAB PO SCH (08:43)
[2024-07-13] MEDS: CYANOCOBALAMIN (B-12) 500 MCG TABLET PO SCH (08:43)
[2024-07-13] MEDS: PANTOprazole 40 MG TAB PO SCH (08:43)
[2024-07-13] MEDS: ENOXAPARIN INJ 40 MG/0.4 ML SYR SQ SCH (08:44)
[2024-07-13 09:24] LABS: Bilirubin Direct 0.1 mg/dl (0-0.2); Bilirubin,Total 0.4 mg/dl (0.2-1.0); Total Protein 5.8 gm/dl (6.0-8.3)
[2024-07-13] MEDS ORDERED: IBUPROFEN 600 MG TAB PO PRN (15:01)
[2024-07-13] MEDS: ERTAPENEM 1000MG 1,000 MG/10 ML SYR IV SCH (15:43)
[2024-07-13] MEDS: ACETAMINOPHEN 325 MG TAB PO PRN (15:43)
--- NOTE | 2024-07-13 17:36 | Billing Data ---
Date of Service July 13, 2024 Coding Level of Care Code 21223 SUB INP/OBS CARE MIN
--- NOTE | 2024-07-13 22:29 | Electrocardiogram Report ---
Test Reason : Blood Pressure : */* mmHG Vent. Rate : 61 BPM Atrial Rate : 61 BPM P-R Int : 166 ms QRS Dur : 74 ms QT Int : 414 ms P-R-T Axes : 2 -7 2 degrees QTcB Int : 416 ms Normal sinus rhythm Low voltage QRS Cannot rule out Anterior infarct , age undetermined Nonspecific T wave abnormality Abnormal ECG When compared with ECG of 24-Jun-2019 15:37, No significant change Confirmed by Jak Weber ([id number] on 07/13/2024 10:29:14 PM Referred By: Confirmed By: Jak Weber
[2024-07-14 06:59] LABS: Basophils # (auto) 0.04 K/uL (0.00-0.20); Basophils % (auto) 0.7 %; Eosinophils # (auto) 0.23 K/uL (0.00-0.50); Eosinophils % (auto) 4.1 %; Hematocrit (blood only) 26.4 % (37.0-47.0); Hemoglobin 8.8 g/dl (12.0-16.0); Immature Granulocytes # (auto) 0.02 K/uL (0.01-0.20); Immature Granulocytes % (auto) 0.4 %; Lymphocytes # (auto) 1.24 K/uL (1.20-3.40); Lymphocytes % (auto) 22.1 %; Mean Corpuscular Hgb Conc 33.3 g/dL (32.0-36.0); Mean Corpuscular Volume 87.1 fL (80.0-100.0); Mean Platelet Volume 10.1 fL (9.4-12.4); Monocytes # (auto) 0.65 K/uL (0.11-0.59); Monocytes % (auto) 11.6 %; Neutrophils # (auto) 3.42 K/uL (1.40-6.50); Neutrophils % (auto) 61.1 %; Platelet Count 278 K/uL (130-400); RDW Coefficient of Variation 15.8 % (11.5-14.5); RDW Standard Deviation 50.4 fL (36.4-46.3); Red Blood Count 3.03 M/uL (4.20-5.40)
[2024-07-14 07:23] LABS: BUN Creatinine Ratio 14.3 (10-20); Calcium 8.8 mg/dl (8.6-10.3); Creatinine Clr Calc Pharmacy 90.9 ml/min; Potassium 3.3 mmol/L (3.5-5.1)
--- NOTE | 2024-07-14 11:22 | Discharge Summary ---
Date of Service July 14, 2024 Admission HPI Per Admitting Provider Yudy is a 64-year-old female who presents with hypotension, pallor, fatigue, myalgias. She is found to have a UTI and has a history of ESBL E. coli infection. Fevers, chills of ~5 days. Foul smell to urine odor. Has a dry cough. Nonproductive. No shortness of breath. No hypoxia. No chest pain or chest pressure No abdominal pain. No flank pain Had some loose BMs Tuesday/Tuesday, none today. Brown. No bloody or black bowel movements. Denies any history of bleeding. Last colonoscopy due in 2028, last was normal and recommended for 10 year followup. Taking tylenol and alternatives with ibuprofen. Takes 4 tablets of 650mg tylenol total over 24 hours. Alternates with with ibuprofen 6x 200mg tablets total per 24 hours. Medical History: Reviewed Medications: Reviewed Surgical History: Reviewed Family history: Reviewed Allergies: Reviewed Social History: Reviewed Code Status: Full COde Admission Exam Per Admitting Provider General: A&Ox3. NAD. Cooperative. HEENT: Atraumatic, normocephalic. Vision and hearing grossly intact Pulm: CTAB A&P. -wheezes, -rales, -rhonchi. Symmetrical chest rise. No increased work of breathing. No respiratory distress. Cardiac: RRR, -mrg. Radial pulses intact and symmetrical. Abdominal: Nontender, nondistended, soft. BS present. Ext" Warm, dry. Moves extremities equally Principal Diagnosis Complicated UTI, hypotension, ALBERTO Discharge Exam General: patient resting comfortably, NAD, non-toxic in appearance, answers questions appropriately. Skin: warm, dry, intact HEENT: NC/AT, anicteric sclera, conjunctiva without injection, moist mucus membranes. Heart: +S1/S2, regular, no m/r/g Lungs: equal air entry bilaterally, no rales/rhonchi/wheezes Abd: +BS, soft, NT/ND Ext: warm, no clubbing/cyanosis or edema Neuro: nonfocal, speech intact, no facial droop, moving all extremities. Discharge Data Allergies Allergy/AdvReac Type Severity Reaction Status Date / Time Iodinated Contrast Media Allergy Unknown HIVES TO Verified 07/12/24 10:41 CT SCAN DYE shellfish derived Allergy Unknown Verified 01/16/25 10:41 Consultations 07/12/24 16:12 ED Decision to Admit Stat Ordered Studies 07/12/24 13:57 CT abd pelvis wo con Stat Hospital Course (1) ALBERTO (acute kidney injury): (2) History of ESBL E. coli infection: (3) Viral sinusitis: (4) Transaminitis: (5) Anemia: Plan Pt is a 64 yo female with PMH of DM and hypothyroidism presenting to the hospital d/t cough, fevers, and chills. She was evaluated by her PCP who recommended she come to the ER d/t hypotension and "jaundice." General illness/hypotension - unclear etiology; pyelo vs. viral illness vs. ? - overall picture now improving: no longer hypotensive, transaminitis resolved, ALBERTO resolved - pt with hx significant for ESBL urine infection and perinephric stranding on CT; currently treating with ertapenem for possible pyelo (although without overt urinary symptoms) - will continue ertapenem into tomorrow and determine further need for ABX based on response Anemia - last Hgb in 2022 WNL; on admission 9.6 with downtrend to 8.4 - unclear etiology; no obvious signs of bleeding, ?possible viral suppression - last colonoscopy in 2018 WNL; iron studies show low iron with normal ferritin (which could be acute phase reactant)- B12 and folate WNL - FOBT ordered to evaluate for GI bleeding - consider repeat ferritin once illness resolves to determine iron deficiency state; pt may benefit from outpatient colonoscopy for further work up to ensure no GI malignancy ALBERTO- resolved - no hx of CKD; suspect ALBERTO secondary to dehydration - Cr on admission 1.26; after IVF now back WNL Transaminitis- resolved - initially elevated at AST 54/ALT 78 on admission - repeat downtrended to normal - suspect secondary to hypotension Type 2 DM- cover with SSI while hospitalized Hypothyroidism- continue synthroid HLD- continue statin Diet: carb consistent VTE ppx: lovenox Dispo: PCU/tele- d/t stability, will downgrade to med/surg Total Time Total Time Spent Total Time Spent (In Minutes): See attending attestation Discharge Plan Discharge Items Patient Disposition: Home - Self-Care Reason For Visit: COMPLICATED UTI Discharge Diagnosis: Complicated UTI Activity: Per Instructions section Non-emergency contact: Primary Care Provider Call non-emergency contact if: your symptoms worsen and your pain is not controlled Follow-up/Referrals: Johana Bean MD [Primary Care Provider] - Diet: Regular Addtl Attending Provider Instructions: You were admitted to the hospital after your primary care provider recommended hospital f/u due to elevated LFTs, jaundice, and hypotension. While in the hospital you initially had a fever and testing resulted in cultures that were positive for ESBL E. coli within the urine. Although you did not have lower urinary tract symptoms, you did have a fever and some constitutional signs of UTI. While in the hospital you were treated with IV abx and imaging and labs did not reveal other abnormalities of disease processes. Your blood counts were low and it is important to get a colonoscopy outpatient in the next few months to determine if there is a source of bleeding within the colon. Talk to your primary care provider about scheduling an appointment with GI for a colonoscopy. It will also be important to supplement with daily iron pills to keep your iron stores within normal levels and this will also affect your blood counts and keep them in the correct range. You will be prescribed an outpatient oral antibiotic to be used called Macrobid, please take Macrobid 100mg twice per day for the next 3 days out of the hospital. In addition Iron supplementation tablets called Ferrous Sulfate 325 mg have shasta sent to your pharmacy. Please take 1 tablet every other day. A discharge summary will be sent to your primary care physician to ensure continuity of care. Please bring this discharge summary with you to your next office appointment so that your provider can review it at that time. Follow-up appointments: Make a follow-up appointment with your PCP within the next week. It is very important that you follow up with them shortly after discharge from the hospital Medications: Your medication list has been reviewed and reconciled upon discharge to ensure accuracy and continuity of care. An updated list of all your medications is inc luded with your hospital discharge paperwork. Please review this list closely, and make note of any changes. Take your medications as instructed; do not skip a dose of your medicines. Make sure all of your doctors know every medicine you are taking (including owre-ewb-azhlqdx medicines, vitamins, and supplements). Call your primary care provider before taking any new medicines (including xglv-qik-hdctnpo medicines, vitamins, and supplements), because some of these may interact with your current medications, or may make your symptoms worse. Tell your primary care provider if you cannot afford your medications. CONTACT YOUR PRIMARY CARE PROVIDER if you experience any of the following: Difficulty following your treatment plan, or difficulty taking medications CALL 911 OR GO TO THE EMERGENCY DEPARTMENT if you experience any of the following: Sudden, severe abdominal pain or nausea/vomiting Severe chest pain, or chest pain that radiates (moves) to your jaw or arm Sudden, severe shortness of breath or difficulty breathing Thank you for allowing us to participate in your care. Pending Studies at Discharge: No Stand-Alone Forms: My [facility], Smoking Cessation Medications and DC Order Prescriptions: New nitrofurantoin monohyd/m-cryst [Macrobid] 100 mg capsule 100 mg PO BID 3 Days Qty: 6 0RF Rx Instructions: must administer with a meal/food ferrous sulfate [iron] 325 mg (65 mg iron) tablet 325 mg PO Q OTHER DAY Qty: 30 0RF Continued cholecalciferol (vitamin D3) [Vitamin D3] 25 mcg (1,000 unit) capsule 3,000 unit PO QAM Rx Instructions: OTC unable to verify pantoprazole 40 mg tablet,delayed release (DR/EC) 40 mg PO DAILY Qty: 90 3RF fexofenadine [Allergy Relief (fexofenadine)] 180 mg tablet 180 mg PO Q24H 30 Days Qty: 30 4RF Rx Instructions: OTC unable to verify Mounjaro 5 mg/0.5 mL pen injector 5 mg subcut .q7days 28 Days Qty: 2 3RF olmesartan 5 mg tablet 5 mg PO DAILY 90 Days Qty: 90 4RF levothyroxine 175 mcg tablet 175 mcg PO DAILY Qty: 30 6RF atorvastatin 10 mg tablet 10 mg PO DAILY Qty: 30 6RF mecobalamin (vitamin B12) 1,000 mcg tablet,chewable 1,000 mcg PO DAILY Rx Instructions: OTC unable to verify albuterol sulfate 90 mcg/actuation HFA aerosol inhaler 2 puff inhalation QID PRN (Reason: shortness of breath or wheezing) Qty: 6.7 0RF Rx Instructions: last filled in 2022 multivitamin Tablet 1 tab PO QAM Rx Instructions: OTC unable to verify metformin 1,000 mg tablet 1,000 mg PO UD Rx Instructions: 1000 mg po bid. last filled in january 2024 for 90 days per pharmacy Discharge Orders: Discharge Order (Routine); Ordered 07/14/24 Ordered By: Deondre Kumari Admission Data Admit Date/Time: 07/12/24 17:41 Attending Provider: Alexx Carranza Admit Provider: Christophe Loaiza Primary Care Provider: Johana Baen Other Providers: Christophe Loaiza Other Interventions: Discharge Summary Assessment (RN) Last Done: 07/14/24 17:01 Supervising Physician Co-Signing Physician Notes I personally examined the patient and verified all paz points of history and exam, discussed case, and agree with decision making with Dr Kumari feels better and would like to go home. Eating and drinking well. Feels like she would do okay out of the hospital. Family present. Vitals noted, in general she is awake and alert pleasant no distress. HEENT normocephalic atraumatic mucous membranes moist. Breathing unlabored no accessory muscle use good effort. Skin without rashes pallor or icterus. Neuro without focal deficits. Illness Most suspicious this was a viral etiology. Working diagnosis at admission was pyelonephritis/complicated UTIat the same time she really did not seem to complain of any urinary symptoms, and her dark/foul-smelling urine could easily been attributed to being dehydrated. however, a viral illness could account for her sinus symptoms, overall feeling lousy, and then dehydration could account for the low blood pressure and concentrated urine. At the same time hard to rule out urinary given her overall presentation and in that respect, she got a few days of ertapenem and we will finish out treatment with nitrofurantoin Anemiauncertain etiology but no clear bleeding. Iron low, ferritin probably phase reactantso most likely iron deficiency. previously not due for a colonoscopy for another 5 years, but given iron deficiency anemia probably safer to get it done sometime in the next few months. she is willing to do so. P.o. iron supplementation, outpatient serial labs, colonoscopy in the next few months. DVT prophylaxiscurrently SCDs given anemia. Otherwise as above Resident Activity Tracking Resident Involvement: Resident Care Provided Care Provided: Adult Hospital Medicine
[2024-07-14 15:39] VITALS: BP 111/70; PULSE 64; RESP 18; TEMP 98.4; O2SAT 94
--- NOTE | 2024-07-14 17:26 | Billing Data ---
Date of Service July 14, 2024 Coding Level of Care Code 82727 IN/OBS DISCH 30 MIN/LESS
[2024-07-15 09:19] LABS: A calco-baum cmplx NotReported Not Detected (NotDetected); Bact fragilis Not Reported Not Detected (NotDetected); Blood Culture Id Panel See PCR Comment (NotDetected); C auris Not Reported Not Detected (NotDetected); CTX-M Resistant Gene DETECTED (NotDetected); Calbicans Not Reported Not Detected (NotDetected); Candida glabrata Not Reported Not Detected (NotDetected); Candida krusei Not Reported Not Detected (NotDetected); Cneoformans/gatti Not Reported Not Detected (NotDetected); Cparapsilosis Not Reported Not Detected (NotDetected); E cloacae compx Not Reported Not Detected (NotDetected); Efaecalis Not Reported Not Detected (NotDetected); Efaecium Not Reported Not Detected (NotDetected); Enterobacterales DETECTED (NotDetected); Enterobacterales Not Reported DETECTED (NotDetected); Escherichia coli Not Reported DETECTED (NotDetected); H influenzae Not Reported Not Detected (NotDetected); IMP Resistant Gene Not Detected (NotDetected); K aerogenes Not Reported Not Detected (NotDetected); KPC Resistant Gene Not Detected (NotDetected); Koxytoca Not Reported Not Detected (NotDetected); Kpneumoniae grp Not Reported Not Detected (NotDetected); Lmonocyt Not Reported Not Detected (NotDetected); N meningitidis Not Reported Not Detected (NotDetected); NDM Resistant Gene Not Detected (NotDetected); OXA 48 Like Resistant Gene Not Detected (NotDetected); P aeruginosa Not Reported Not Detected (NotDetected); Proteus spp Not Reported Not Detected (NotDetected); Salmonella spp Not Reported Not Detected (NotDetected); Staph lugdunensis Not Reported Not Detected (NotDetected); Staph spp. Not Reported Not Detected (NotDetected); Staphaureus Not Reported Not Detected (NotDetected); Staphepi Not Reported Not Detected (NotDetected); Stenmaltophilia Not Reported Not Detected (NotDetected); Strep agal(GrpB) Not Reported Not Detected (NotDetected); Strep pneum Not Reported Not Detected (NotDetected); Strep pyog (GrpA) Not Reported Not Detected (NotDetected); Strep spp Not Reported Not Detected (NotDetected); VIM Resistant Gene Not Detected (NotDetected); mcr-1 Colistin Resistant Gene Not Detected (NotDetected)
== END 2024-07-14 17:52 | disposition home or self-care (01) | DRG 690 ==
LOC: ED 11:52 → SUATTDRO 17:41 → 2S 17:41

== ENCOUNTER 2024-07-15 11:48 | Inpatient (IN) ==
[2024-07-15] MEDS ORDERED: MAGNESIUM HYDROXIDE SUSP 30 ML UDC PO PRN (11:50)
[2024-07-15] MEDS ORDERED: ONDANSETRON INJ 2 MG/ML 2 ML VIAL IV PRN (11:50)
[2024-07-15] MEDS ORDERED: POLYETHYLENE (MIRALAX) 17 GM PACK PO PRN (11:50)
[2024-07-15] MEDS ORDERED: ALUMINUM/MAGNESIUM SUSP 30 ML UDC PO PRN (11:50)
[2024-07-15] MEDS ORDERED: ACETAMINOPHEN 325 MG TAB PO PRN (11:50)
[2024-07-15] MEDS: Patient's HEIGHT &/or WEIGHT Needed STA (14:55)
[2024-07-15 15:17] VITALS: RESP 16
[2024-07-15] MEDS ORDERED: CARBOHYDRATES FOR HYPOGLYCEMIA PO PRN (15:30)
[2024-07-15] MEDS ORDERED: GLUCAGON FOR INJ 1 MG VIAL SQ PRN (15:30)
[2024-07-15] MEDS ORDERED: GLUCOSE 10 TAB/TUBE PO PRN (15:30)
[2024-07-15] MEDS ORDERED: GLUCOSE 40% GEL 15 GM TUBE PO PRN (15:30)
[2024-07-15] MEDS ORDERED: DEXTROSE 50% 50 ML SYRINGE IV PRN (15:30)
--- NOTE | 2024-07-15 16:03 | History & Physical Report ---
Date of Service July 15, 2024 Assessment & Plan (1) Gram-negative bacteremia: Plan: expect this will be the same ESBL as in her urine. Continue ertapenem. Setting up for MTU. Given how well she feels I do not see the need for follow- up cultures. Otherwise as per discharge yesterday. Admission and Anticipated Discharge Date Admission Date: July 15, 2024 History of Present Illness Chief Complaint: gram-negative rods on blood culturepatient is a very pleasant 64-year-old female who was here through yesterday with a illness that entailed constitutional symptoms, and upper respiratory symptoms as well as dark urine. She had a CT and a urine culture that were consistent with a lower urinary tract infection and possibly Piloalthough this was not entirely clearand again really did not have many striking urinary symptoms. As she was feeling better she would very much like to go home and she was discharged on nitrofurantoin after having received 2 days of ertapenem IV (last dose 07/14 at about 5 PM). She had blood cultures pending at the time, and as a bit of a surprise today the lab called us that she had gram-negative rods on blood culturewe called her and explained the situation. Unfortunately with it being ESBL there is really not good oral options, and with it being a weekend in the afternoon it was not clear that we could simply set things up through MTUso we brought her back to medical to continue the ertapenem without missing a dose, and get things set up for MTU. She expressed a good understanding of this and continues to feel well. Primary Care Provider: Johana Bean MD Allergies Allergy/AdvReac Type Severity Reaction Status Date / Time Iodinated Contrast Media Allergy Unknown HIVES TO Verified 07/12/24 10:41 CT SCAN DYE shellfish derived Allergy Unknown Verified 07/12/24 10:41 Home Medications Medication Instructions Recorded Confirmed Type multivitamin 1 tab PO QAM 09/26/18 07/15/24 History mecobalamin (vitamin B12) 1,000 1,000 mcg PO DAILY 02/05/20 07/15/24 History mcg chewable tablet cholecalciferol (vitamin D3) 25 3,000 unit PO QAM 09/28/21 07/15/24 History mcg (1,000 unit) capsule (Vitamin D3) albuterol sulfate 90 mcg/actuation 2 puff inhalation QID PRN 04/06/23 07/15/24 Rx aerosol inhaler shortness of breath or wheezing #6.7 grams pantoprazole 40 mg tablet,delayed 40 mg PO DAILY #90 tabs 11/30/23 07/15/24 Rx release fexofenadine 180 mg tablet 180 mg PO Q24H 30 days #30 tabs 01/21/24 07/15/24 Rx (Allergy Relief (fexofenadine)) tirzepatide 5 mg/0.5 mL 5 mg (0.5 mL) subcut .q7days 28 05/22/24 07/15/24 Rx subcutaneous pen injector days #2 mL (Mounjaro) atorvastatin 10 mg tablet 10 mg PO DAILY #30 tabs 07/02/24 07/15/24 Rx levothyroxine 175 mcg tablet 175 mcg PO DAILY #30 tabs 07/02/24 07/15/24 Rx olmesartan 5 mg tablet 5 mg PO DAILY 90 days #90 tabs 07/02/24 07/15/24 Rx metformin 1,000 mg tablet 1,000 mg PO UD 07/12/24 07/15/24 History ferrous sulfate 325 mg (65 mg 325 mg PO Q OTHER DAY #30 tabs 07/14/24 07/15/24 Rx iron) tablet (iron) nitrofurantoin 100 mg PO BID 3 days #6 caps 07/14/24 07/15/24 Rx monohydrate/macrocrystals 100 mg capsule (Macrobid) Past Med/Surg History Problem List (Updated 07/15/24 @ 16:01 by Alexx Carranza DO) Gram-negative bacteremia Anemia Transaminitis Viral sinusitis ALBERTO (acute kidney injury) (Acute) Iron deficiency anemia (Acute) History of ESBL E. coli infection (Acute) Pyelonephritis of right kidney (Acute) Type 2 diabetes mellitus with albuminuria Hypertriglyceridemia Type 2 diabetes mellitus with obesity Skin tags, multiple acquired Dyslipidemia Hypothyroidism Thyromegaly History of gastric bypass with hernia repair GERD (gastroesophageal reflux disease) Asthma allergy induced--inhaler prn Depression (Acute) Medical History Vitamin D deficiency History of anesthesia reaction after wrist sx: difficulty waking and "oxygen level kept dropping, had to admit me and wear oxygen overnight" Osteoarthritis Kidney stones Diabetes mellitus, type 2 Surgical History H/O umbilical hernia repair History of cholecystectomy History of hysterectomy History of dilatation and curettage x2 History of open reduction and internal fixation (ORIF) procedure x2 left wrist--hardware in place History of cystoscopy x2 with stents placed History of colonoscopy History of esophagogastroduodenoscopy (EGD) History of tooth extraction History of tonsillectomy and adenoidectomy History of bilateral cataract extraction Family History Grandmother (Maternal) Diabetes Mother Diabetes Dementia Son Diabetes Uncle Colorectal cancer Aunt Breast cancer Other No family history of adverse response to anesthesia Denies family history of Ovarian cancer Prostate cancer Myocardial infarction Social History Smoking Status: Never smoker Second Hand Exposure: No ( smoked); Do You Dip or Chew Tobacco: No; Hx Alcohol Use: No Hx Substance Use: No Preferred Language: Iraqi Communication Ability: Effective Visual Impairment: Limited Hearing Ability: Normal Court Manager Required: No Beliefs That Will Affect Care: None marital status: Current Living Situation: Family Current Living Situation Comment: with son current occupational status: employed How many Children do You have: 2 Feels Safe at Home: Yes Childhood Exposure to Second-Hand Smoke: Yes Diet Comment: Watches lactose carefully caffeine: Yes (soda) Dental Care, Regularly: Yes Physical Activity Frequency: Does not Exercise Seatbelt Use: always Sunscreen Use: No Assistive Devices: None Review of Systems Review of Systems: All systems reviewed & are unremarkable except as noted in HPI & below Physical Exam Physical Exam: In general she is awake alert pleasant no distress. HEENT normocephalic atraumatic mucous membranes moist. Breathing unlabored no accessory muscle use good effort. Skin without rashes pallor or icterus. Neuro without focal deficits. Results & Data Results & Data Vital Signs (Past 12 Hours) Vital Signs Temp Resp BP BP Pulse Ox O2 Del Method 07/15/24 15:16 98.2 F 16 103/68 95 Room Air 07/15/24 14:06 97.3 F L 18 108/72 98 Room Air 07/15/24 13:54 97.3 F L 14 108/72 98 Room Air Code Status & VTE Plan VTE Prophylaxis Plan VTE Prophylaxis will be ordered: Yes PG Care Time/CCT Total # of Minutes Spent Total Time Spent with Patient: Total time spent is greater than 50% in coordination of care (as documented) at patient's floor/unit and/or counseling patient: Coding Level of Care Code 46821 INT INP/OBS CARE 2/55MIN Diagnoses Gram-negative bacteremia R78.81
[2024-07-15] MEDS: ERTAPENEM 1000MG 1,000 MG/10 ML SYR IV SCH (16:07)
[2024-07-15] MEDS: INSULIN ASPART PER UNIT CHARGE SC SCH (17:34)
[2024-07-16] MEDS: LEVOTHYROXINE SODIUM 175 MCG TABLET PO SCH (05:45)
[2024-07-16 06:20] LABS: Basophils # (auto) 0.06 K/uL (0.00-0.20); Basophils % (auto) 1.1 %; Eosinophils # (auto) 0.32 K/uL (0.00-0.50); Eosinophils % (auto) 5.8 %; Hematocrit (blood only) 27.5 % (37.0-47.0); Hemoglobin 8.9 g/dl (12.0-16.0); Immature Granulocytes # (auto) 0.07 K/uL (0.01-0.20); Immature Granulocytes % (auto) 1.3 %; Lymphocytes # (auto) 1.79 K/uL (1.20-3.40); Lymphocytes % (auto) 32.7 %; Mean Corpuscular Hemoglobin 28.9 pg (25.0-34.0); Mean Corpuscular Hgb Conc 32.4 g/dL (32.0-36.0); Mean Corpuscular Volume 89.3 fL (80.0-100.0); Mean Platelet Volume 9.4 fL (9.4-12.4); Monocytes # (auto) 0.47 K/uL (0.11-0.59); Monocytes % (auto) 8.6 %; Neutrophils # (auto) 2.77 K/uL (1.40-6.50); Neutrophils % (auto) 50.5 %; Platelet Count 399 K/uL (130-400); RDW Coefficient of Variation 15.7 % (11.5-14.5); RDW Standard Deviation 51.6 fL (36.4-46.3); Red Blood Count 3.08 M/uL (4.20-5.40); White Blood Count 5.48 K/ul (4.8-10.8)
[2024-07-16 06:26] LABS: BUN Creatinine Ratio 11.5 (10-20); Creatinine Clr Calc Pharmacy 79.9 ml/min; Potassium 3.2 mmol/L (3.5-5.1)
[2024-07-16 07:11] VITALS: BP 113/76; PULSE 76; TEMP 97.9; O2SAT 94
[2024-07-16] MEDS: LOSARTAN POTASSIUM 25 MG TAB PO SCH (08:41)
[2024-07-16] MEDS: FEXOFENADINE HCL 180 MG TAB PO SCH (08:41)
[2024-07-16] MEDS: CYANOCOBALAMIN (B-12) 500 MCG TABLET PO SCH (08:41)
[2024-07-16] MEDS: ATORVASTATIN 10 MG TAB PO SCH (08:42)
[2024-07-16] MEDS: PANTOprazole 40 MG TAB PO SCH (08:42)
[2024-07-16] MEDS: POTASSIUM CHLORIDE CRTAB 20 MEQ TABCR PO STA (08:44)
--- NOTE | 2024-07-16 11:13 | Discharge Summary ---
Discharge Summary Date of Service July 16, 2024 Principal Dx & Hospital Course #1 = Principal Diagnosis (1) Gram-negative bacteremia: This is a 64 year old female with past medical history DM and hypothyroidism who presented to the ED on 07/15/2024 after being informed regarding positive blood culture results. Patient was recently admitted from 07/12-07/14 for hypotension and jaundice. She was diagnosed with ESBL urine infection and treated with ertapenem inpatient. She was then transitioned to Nitrofurantoin outpatient. BC + for E. Coli, likely due from ESBL E coli in urine Started back on Ertapenem 07/15, fortunately patient did not miss any days of IV abx therapy. US guided line placed 07/16 patient to go to infusion center for additional 9 days (through 07/26) CBC stable. BMP w/ low K of 3.2, replaced. Weekly CBC and CMP while on IV abx therapy outpatient. Orders placed w/ CM Patient updated and agreeable to plan 07/16. Discharge Exam Constitutional WD/WN, vitals as above Eyes PERRL, conjunctivae normal, anicteric sclerae Respiratory normal respiratory effort, lungs clear to auscultation Cardiovascular RRR, no murmur, no edema Psychiatric A+Ox3, euthymic affect Discharge Plan Discharge Items Patient Disposition: Home - Self-Care Reason For Visit: GRAM NEGATIVE BACTEREMIA Discharge Diagnosis: Gram negative bacteremia Activity: Resume your previous activity Non-emergency contact: Primary Care Provider Call non-emergency contact if: you have any medication questions, your symptoms worsen and you have a fever Follow-up/Referrals: Johana Bean MD [Primary Care Provider] - 07/23/24 11:00 am Diet: Carb Consistent or DM2 Addtl Attending Provider Instructions: Ms. Gonzales, We advised you to report back to the ER on 07/15 due to the findings of bacteria in your blood stream. Thankfully, you did not miss a day of your IV antibiotic. Please see recommendations below on discharge. 1. Please report to the Infusion center daily for the next 9 days to have IV ertapenem to treat your infection. 2. You may resume the remainder of your outpatient medications. 3. Please follow up with your PCP within 1-2 weeks of discharge. If you develop any worsening symptoms including fevers, chills, chest pain, or shortness of breath please report back to the ER for further care. Sincerely, Angy Rodrigues PA-C Pending Studies at Discharge: No Stand-Alone Forms: My [facility], Smoking Cessation Medications and DC Order Prescriptions: New ertapenem 1 gram recon soln 1 g IV DAILY Qty: 9 0RF Continued cholecalciferol (vitamin D3) [Vitamin D3] 25 mcg (1,000 unit) capsule 3,000 unit PO QAM Rx Instructions: OTC unable to verify pantoprazole 40 mg tablet,delayed release (DR/EC) 40 mg PO DAILY Qty: 90 3RF fexofenadine [Allergy Relief (fexofenadine)] 180 mg tablet 180 mg PO Q24H 30 Days Qty: 30 4RF Rx Instructions: OTC unable to verify Mounjaro 5 mg/0.5 mL pen injector 5 mg subcut .q7days 28 Days Qty: 2 3RF olmesartan 5 mg tablet 5 mg PO DAILY 90 Days Qty: 90 4RF levothyroxine 175 mcg tablet 175 mcg PO DAILY Qty: 30 6RF atorvastatin 10 mg tablet 10 mg PO DAILY Qty: 30 6RF mecobalamin (vitamin B12) 1,000 mcg tablet,chewable 1,000 mcg PO DAILY Rx Instructions: OTC unable to verify albuterol sulfate 90 mcg/actuation HFA aerosol inhaler 2 puff inhalation QID PRN (Reason: shortness of breath or wheezing) Qty: 6.7 0RF Rx Instructions: last filled in 2022 multivitamin Tablet 1 tab PO QAM Rx Instructions: OTC unable to verify metformin 1,000 mg tablet 1,000 mg PO UD Rx Instructions: 1000 mg po bid. last filled in january 2024 for 90 days per pharmacy ferrous sulfate [iron] 325 mg (65 mg iron) tablet 325 mg PO Q OTHER DAY Qty: 30 0RF Discontinued nitrofurantoin monohyd/m-cryst [Macrobid] 100 mg capsule 100 mg PO BID 3 Days Qty: 6 0RF Rx Instructions: must administer with a meal/food Discharge Orders: Discharge Order (Routine); Ordered 07/16/24 Ordered By: Angy Rodrigues Admission Data Admit Date/Time: 07/15/24 13:38 Attending Provider: Marvin Amador Admit Provider: Alexx Carranza Primary Care Provider: Johana Bean Other Interventions: Discharge Summary Assessment (RN) Last Done: 07/16/24 15:16 Hospital Stay Data Pending Results Patient Have Any Pending Studies at Discharge: No Discharge Instructions Given to Patient (Per Discharging Provider) Ms. Gonzales, We advised you to report back to the ER on 07/15 due to the findings of bacteria in your blood stream. Thankfully, you did not miss a day of your IV antibiotic. Please see recommendations below on discharge. 1. Please report to the Infusion center daily for the next 9 days to have IV ertapenem to treat your infection. 2. You may resume the remainder of your outpatient medications. 3. Please follow up with your PCP within 1-2 weeks of discharge. If you develop any worsening symptoms including fevers, chills, chest pain, or shortness of breath please report back to the ER for further care. Sincerely, Angy Rodrigues PA-C Total Time Total Time Spent Total Time Spent (In Minutes): 40 Total Time Includes: Examination of the Patient, Discharge Planning and Medication Reconciliation Coding Level of Care Code 47786 INP/OBS DISCH >30 MIN Diagnoses Gram-negative bacteremia R78.81
== END 2024-07-16 15:45 | disposition home or self-care (01) | DRG 872 ==
LOC: SUATTDRO 13:38 → 3E 13:38